=== PATIENT | male | born 1970 | race African-American/Black ===

== ENCOUNTER 2019-02-18 09:31 | Emergency (ER) | payer MEDICARE, OTHER ==
[~2019-02-18] VITALS: Ht 182.9 cm; Wt 99.8 kg
[2019-02-18] MEDS: IV NORMAL SALINE 1,000ML 1,000 ML IV SCH ×2 (09:46→10:59)
[2019-02-18 10:13] LABS: BASO % 1 % (0-3); EOS # 0.1 x10^3/uL (0.0-0.7); EOS % 2 % (0-3); HEMATOCRIT 39.8 % (39.0-53.0); HEMOGLOBIN 13.2 g/dL (13.0-17.5); LYMPH # 1.2 x10^3/uL (1.0-4.8); LYMPH % 31 % (24-48); MEAN CORPUSCULAR HEMOGLOBIN 29 pg (25-35); MEAN CORPUSCULAR HGB CONC 33 g/dL (31-37); MEAN CORPUSCULAR VOLUME 89 fL (79-100); MONO # 0.4 x10^3/uL (0.0-1.1); MONO % 10 % (0-9); NEUT # 2.2 x10^3uL (1.8-7.7); NEUT % 56 % (31-73); PLATELET COUNT 213 x10^3/uL (140-400); RED BLOOD COUNT 4.49 x10^6/uL (4.30-5.70)
[2019-02-18 10:19] LABS: ALBUMIN 3.4 g/dL (3.4-5.0); CALCIUM 9.5 mg/dL (8.5-10.1); CREATININE 1.4 mg/dL (0.7-1.3); GFR 65.2; MAGNESIUM 1.9 mg/dL (1.8-2.4); POTASSIUM 4.1 mmol/L (3.5-5.1); TOTAL BILIRUBIN 0.2 mg/dL (0.2-1.0); TOTAL PROTEIN 6.7 g/dL (6.4-8.2)
--- NOTE | 2019-02-18 10:22 | PHYS DOC ---
Past History Past Medical History: Bipolar, Diabetes, Hypertension, Other Alcohol Use: None Drug Use: None Adult General Chief Complaint Chief Complaint: DIZZY/LIGHT HEADED HPI HPI Patient is a 48 year old male who presents with dizziness and hypotension. Patient symptoms started this morning just after 8:00 AM. Patient was complaining of dizziness and feeling sick to his stomach. Patient comes to the emergency department from a snf. Patient has history of autism, bipolar disorder, and hypertension. The patient was noted to be hypotensive at 60/40 at the scene. EMS was called and found patient to be 70/50. Patient brought to the emergency department for further evaluation. The patient states currently he feels better while at rest but states that he was lightheaded when he was up on his feet. The patient took his blood pressure medications prior to onset of hypotension. Patient is currently on amlodipine and by systolic for treatment of blood pressure. No reported recent changes to blood pressure medication regimen. Patient's had no fevers and denies any pain, headache, congestion, vomiting, or diarrhea. Review of Systems Review of Systems Constitutional: Denies fever or chills [] Eyes: Denies change in visual acuity, redness, or eye pain [] HENT: Denies nasal congestion or sore throat [] Respiratory: Denies cough or shortness of breath [] Cardiovascular: Denies chest pain or edema[] GI: Denies abdominal pain, nausea, vomiting, bloody stools or diarrhea [] : Denies dysuria or hematuria [] Musculoskeletal: Denies back pain or joint pain [] Integument: Denies rash or skin lesions [] Neurologic: Dizziness, lightheadedness, denies headache, focal weakness or sensory changes [] All other systems were reviewed and found to be within normal limits, except as documented in this note. Current Medications Current Medications Current Medications Medications (Trade) Dose Ordered Sig/Tyrone Start Time Stop Time Status Last Admin Dose Admin Sodium Chloride 1,000 ml @ 1,000 mls/hr Q1H 02/18/19 09:36 02/18/19 11:35 02/18/19 09:46 1,000 MLS/HR Allergies Allergies Allergies Coded Allergies Type Severity Reaction Last Updated Verified strawberry Allergy Unknown 02/18/19 Yes Physical Exam Physical Exam Constitutional: Well developed, well nourished, no acute distress, non-toxic appearance. [] HENT: Normocephalic, atraumatic, bilateral external ears normal, oropharynx moist, no oral exudates, nose normal. [] Eyes: PERRLA, EOMI, conjunctiva normal, no discharge. [] Neck: Normal range of motion, no tenderness, supple, no stridor. [] Cardiovascular:Heart rate regular rhythm, no murmur [] Lungs & Thorax: Bilateral breath sounds clear to auscultation [] Abdomen: Bowel sounds normal, soft, no tenderness, no masses, no pulsatile masses. [] Skin: Warm, dry, no erythema, no rash. [] Back: No tenderness, no CVA tenderness. [] Extremities: No tenderness, no cyanosis, no clubbing, ROM intact, no edema. [] Neurologic: Alert and oriented X 3, normal motor function, normal sensory funct ion, no focal deficits noted. [] Psychologic: Affect normal, judgement normal, mood normal. [] Current Patient Data Vital Signs Vital Signs Date Time Temp Pulse Resp B/P (MAP) Pulse Ox O2 Delivery O2 Flow Rate FiO2 02/18/19 09:49 97.6 74 18 97 Room Air Lab Results Laboratory Tests Test 02/18/19 09:50 02/18/19 09:53 02/18/19 10:28 White Blood Count 4.0 x10^3/uL Red Blood Count 4.49 x10^6/uL Hemoglobin 13.2 g/dL Hematocrit 39.8 % Mean Corpuscular Volume 89 fL Mean Corpuscular Hemoglobin 29 pg Mean Corpuscular Hemoglobin Concent 33 g/dL Red Cell Distribution Width 14.0 % Platelet Count 213 x10^3/uL Neutrophils (%) (Auto) 56 % Lymphocytes (%) (Auto) 31 % Monocytes (%) (Auto) 10 % Eosinophils (%) (Auto) 2 % Basophils (%) (Auto) 1 % Neutrophils # (Auto) 2.2 x10^3uL Lymphocytes # (Auto) 1.2 x10^3/uL Monocytes # (Auto) 0.4 x10^3/uL Eosinophils # (Auto) 0.1 x10^3/uL Basophils # (Auto) 0.0 x10^3/uL Sodium Level 141 mmol/L Potassium Level 4.1 mmol/L Chloride Level 104 mmol/L Carbon Dioxide Level 33 mmol/L Anion Gap 4 Blood Urea Nitrogen 17 mg/dL Creatinine 1.4 mg/dL Estimated GFR (Cockcroft-Gault) 65.2 BUN/Creatinine Ratio 12 Glucose Level 146 mg/dL Calcium Level 9.5 mg/dL Magnesium Level 1.9 mg/dL Total Bilirubin 0.2 mg/dL Aspartate Amino Transf (AST/SGOT) 18 U/L Alanine Aminotransferase (ALT/SGPT) 34 U/L Alkaline Phosphatase 120 U/L Total Protein 6.7 g/dL Albumin 3.4 g/dL Albumin/Globulin Ratio 1.0 Glucose (Fingerstick) 143 mg/dL Urine Collection Type Unknown Urine Color Yellow Urine Clarity Clear Urine pH 6.5 Urine Specific Lewis 1.015 Urine Protein 30 mg/dl Urine Glucose (UA) Neg mg/dL Urine Ketones (Stick) Neg mg/dL Urine Blood Neg Urine Nitrite Neg Urine Bilirubin Neg Urine Urobilinogen Dipstick 0.2 mg/dL Urine Leukocyte Esterase Neg Urine RBC 0 /HPF Urine WBC Rare /HPF Urine Squamous Epithelial Cells Occ /LPF Urine Bacteria 0 /HPF Current Medications Medications (Trade) Dose Ordered Sig/Tyrone Route PRN Reason Start Time Stop Time Status Last Admin Dose Admin Sodium Chloride 1,000 ml @ 1,000 mls/hr Q1H IV 02/18/19 09:36 02/18/19 11:35 DC 02/18/19 10:59 EKG EKG Interpreted by me: Heart rate 64, sinus rhythm, normal intervals, leftward axis, no acute ST/T-wave abnormalities present[] Radiology/Procedures Radiology/Procedures [address] [address] IMAGING REPORT Signed PATIENT: RAPHAEL VELIZ ACCOUNT: [id number] : 1970 LOCATION: ER AGE: 48 SEX: M EXAM STATUS: REG ER ORD. PHYSICIAN: ANGELES DAVIS MD REASON: dizziness, hypotension PROCEDURE: PORTABLE CHEST 1V EXAM: AP View of the chest DATE: 02/18/2019 9:36 AM INDICATION: Dizziness, hypotension COMPARISON: No Prior FINDINGS: Moderate cardiomegaly. Atherosclerotic calcifications of the tortuous aorta are seen. Aorta is mildly tortuous. Mediastinal and hilar contours are exaggerated by low lung volumes. Patchy left suprahilar airspace opacities are seen.. The latter interstitial prominence is seen, nonspecific. No pleural effusion or pneumothorax. IMPRESSION: 1. Patchy left suprahilar and left infrahilar airspace opacities are seen, possibly infectious/inflammatory process. Imaging follow-up to resolution is recommended. 2. Nonspecific interstitial prominence may be also seen with atypical infectious/inflammatory process. Interstitial edema may also similar appearance given the cardiomegaly although no pleural effusions are seen. Electronically signed by: León Alamo MD (02/18/2019 10:32 AM) [facility] DICTATED AND SIGNED BY: LEÓN ALAMO MD DATE: 02/18/19 1032 CC: ANGELES DAVIS MD; PCP,NO ~ [] Course & Med Decision Making Course & Med Decision Making Pertinent Labs and Imaging studies reviewed. (See chart for details) Patient showed evidence of dehydration on lab work with mildly elevated creatinine level. Patient was given 2 L of IV fluids. Patient's blood pressure has remained stable in the emergency department and patient continues to deny any complaints at this time. Vital signs and lab work do not meet sepsis criteria. Patient's chest x-ray suggests possible left-sided pneumonia though patient does not have fever or active cough symptoms at this time. Early pneumonia remains in differential. The patient will be started on azithromycin for treatment. Patient able to ambulate in the emergency department without difficulty and states that he appears well at this time. Will discharge patient home with recommended follow-up with primary doctor in 5-7 days for reevaluation. Advised return to emergency department for any worsening symptoms. Patient and patient's director of casework services voiced understanding and in agreement with treatment plan.[] Dragon Disclaimer Dragon Disclaimer This electronic medical record was generated, in whole or in part, using a voice recognition dictation system. Departure Departure: Impression: Primary Impression: Lung infection Additional Impression: Dehydration Disposition: 01 HOME, SELF-CARE Condition: IMPROVED Referrals: PCP,DEYA (PCP) Patient Instructions: Dehydration, Adult Additional Instructions: Your lab work showed evidence of dehydration. Your chest x-ray shows findings in your left lung that could be possible infection. Your being started on an antibiotic today and it is recommended that she have a chest x-ray repeated in the next 3-4 weeks to make sure that these findings have resolved. If they continue, your doctor may need to order additional imaging for further evaluation of this. Be sure to measure your blood pressure before taking her medications in the morning. If your blood pressure is lower than 110/70, do not take your blood pressure medication as this could cause her blood pressure to become dangerously low. Be sure to drink plenty of fluids to stay hydrated. Follow-up with your primary doctor in the next 5-7 days for reevaluation and return to the emergency department for any worsening symptoms. Scripts Azithromycin (AZITHROMYCIN TABLET) 250 Mg Tablet 1 PKG PO UD, #6 TAB Prov: ANGELES DAVIS MD 02/18/19 Problem Qualifiers ANGELES DAVIS MD February 18, 2019 10:22
--- NOTE | 2019-02-18 10:36 | RAD ---
EXAM: AP View of the chest DATE: 02/18/2019 9:36 AM INDICATION: Dizziness, hypotension COMPARISON: No Prior FINDINGS: Moderate cardiomegaly. Atherosclerotic calcifications of the tortuous aorta are seen. Aorta is mildly tortuous. Mediastinal and hilar contours are exaggerated by low lung volumes. Patchy left suprahilar airspace opacities are seen.. The latter interstitial prominence is seen, nonspecific. No pleural effusion or pneumothorax. IMPRESSION: 1. Patchy left suprahilar and left infrahilar airspace opacities are seen, possibly infectious/inflammatory process. Imaging follow-up to resolution is recommended. 2. Nonspecific interstitial prominence may be also seen with atypical infectious/inflammatory process. Interstitial edema may also similar appearance given the cardiomegaly although no pleural effusions are seen. Electronically signed by: León Alamo MD (02/18/2019 10:32 AM) [facility]
[2019-02-18 10:59] LABS: BACTERIA,URINE 0 /HPF (0-FEW); BILIRUBIN,URINE NEG (NEG); CLARITY,URINE CLEAR; COLOR,URINE YELLOW; GLUCOSE,URINE NEG (NEG); NITRITE,URINE NEG (NEG); RBC,URINE 0 /HPF (0-2); SQUAMOUS EPITHELIAL CELL,UR OCC /LPF; UROBILINOGEN,URINE 0.2 mg/dL (0.2 mg/dL); WBC,URINE RARE /HPF (0-4)
[2019-02-18 11:28] VITALS: BP 141/103
[2019-02-18] MEDS ORDERED: AZIT250T6 PO (11:35)
--- NOTE | 2019-02-19 06:36 | EKG ---
[address] [address] Test Date: 2019-02-18 Test Time: 10:17:03 Pat Name: RAPHAEL VELIZ Department: Room: Gender: M Car Salesperson: : 1970 Requested By: ANGELES DAVIS Order Number: [id number] Reading MD: Measurements Intervals [place] Rate: 71 P: 22 VT: 204 QRS: 0 QRSD: 86 T: -17 QT: 376 QTc: 413 Interpretive Statements SINUS RHYTHM LEFTWARD AXIS T ABNORMALITY IN INFERIOR LEADS ABNORMAL ECG RI6.01 No previous ECG available for comparison
== END 2019-02-18 11:41 | disposition home or self-care (01) ==
LOC: ER 09:31
DX: J18.9 Pneumonia, unspecified organism (principal); E86.0 Dehydration; F31.9 Bipolar disorder, unspecified; E11.9 Type 2 diabetes mellitus without complications; I10 Essential (primary) hypertension; Z91.018 Allergy to other foods
CPT/HCPCS: 36415; 71045; 80053; 81001; 82947; 83735; 85025; 93005; 96360; 96361; 99285-25; J7030

== ENCOUNTER → 2019-12-03 | Outpatient (CLI) | payer MEDICARE, OTHER ==
[~2019-12-03] MED LIST: AZIT250T6 PO
--- NOTE | 2019-12-03 10:09 | CARD ---
MR#: [id number] Date of Study: 12/03/2019 Ordering Physician: RE NOLEN, Referring Physician: RE NOLEN, Tech: Fariha Ruff NGOZI APPROVED REPORT EXAM: Two-dimensional and M-mode echocardiogram with Doppler and color Doppler. Other Information Quality : Good INDICATION Hypertension/HCVD 2D DIMENSIONS RVDd2.9 (2.9-3.5cm)Left Atrium(2D)4.2 (1.6-4.0cm) IVSd1.4 (0.7-1.1cm)Aortic Root(2D)2.9 (2.0-3.7cm) LVDd4.6 (3.9-5.9cm)LVOT Diameter2.0 (1.8-2.4cm) PWd1.4 (0.7-1.1cm)LVDs3.2 (2.5-4.0cm) FS (%) 31.2 %SV57.4 ml LVEF(%)59.0 (>50%) Aortic Valve AoV Peak Waldo.156.4cm/sAoV VTI25.6cm AO Peak GR.9.8mmHgLVOT Peak Waldo.116.9cm/s LVOT VTI 21.67cmAO Mean GR.5mmHg JESSICA (VMAX)2.89oo7GXC (VTI)2.71cm2 AI P 1/2 Goqk314ax Mitral Valve MV E Klmbfcsw48.0cm/sMV DECEL [id number] MV A Ajvybszz69.9cm/sE/A Ratio0.7 Pulmonary Vein S1 Ravtzasd16.6cm/sD2 Guvdhvwr22.8cm/s LEFT VENTRICLE The left ventricle is normal size. There is mild to moderate concentric left ventricular hypertrophy. The left ventricular systolic function is normal and the ejection fraction is within normal range. T he Ejection Fraction is 55-60%. There is normal LV segmental wall motion. Transmitral Doppler flow pa ttern is Grade I-abnormal relaxation pattern. RIGHT VENTRICLE The right ventricle is normal size. The right ventricular systolic function is normal. ATRIA The left atrium is mildly dilated. The right atrium size is normal. The interatrial septum is intact with no evidence for an atrial septal defect or patent foramen ovale as noted on 2-D or Doppler imagi ng. AORTIC VALVE The aortic valve is normal in structure and function. Doppler and Color Flow revealed trace aortic re gurgitation. There is no significant aortic valvular stenosis. MITRAL VALVE The mitral valve is normal in structure and function. There is no evidence of mitral valve prolapse. There is no mitral valve stenosis. Doppler and Color Flow revealed no mitral valve regurgitation note d. TRICUSPID VALVE The tricuspid valve is normal in structure and function. Doppler and Color Flow revealed no tricuspid valve regurgitation noted. There is no tricuspid valve stenosis. PULMONIC VALVE Doppler and Color Flow revealed no pulmonic valvular regurgitation. There is no pulmonic valvular radha nosis. GREAT VESSELS The aortic root is normal in size. The ascending aorta is moderately dilated at 4.0 cm. The IVC was n ot visualized. PERICARDIAL EFFUSION There is no evidence of significant pericardial effusion. Critical Notification Critical Value: No <Conclusion> There is mild to moderate concentric left ventricular hypertrophy. The left ventricular systolic function is normal and the ejection fraction is within normal range. Th e Ejection Fraction is 55-60%. There is normal LV segmental wall motion. The ascending aorta is moderately dilated at 4.0 cm. Signed by : Re Nolen, Electronically Approved : 12/03/2019 10:09:11
== END | disposition home or self-care (01) ==
LOC: ECHO 08:54
PROVIDERS: ATTEND Internal Medicine Cardiovascular Disease
DX: I11.9 Hypertensive heart disease without heart failure (principal); I77.810 Thoracic aortic ectasia
CPT/HCPCS: 93306

== ENCOUNTER 2019-12-14 09:16 | Emergency (ER) | payer MEDICARE, OTHER ==
[~2019-12-14] VITALS: Ht 162.6 cm; Wt 115.0 kg
[2019-12-14] MEDS ORDERED: IV NORMAL SALINE 1,000ML 1,000 ML IV ONE ×3 (09:30)
--- NOTE | 2019-12-14 09:30 | PHYS DOC ---
Adult General Chief Complaint Chief Complaint: HYPOTENSION HPI HPI Patient is a 49-year-old male who is brought to the ER by EMS from a long-term secondary to reported dizziness and hypotension. EMS was called for dizziness and the patient's blood pressure was found to be low upon arrival. He was also found to be slightly hypoxic with oxygen saturation in the 80s so he was placed on 3 L nasal cannula. Patient denies chest pain or shortness of breath or dizziness and states that he feels normal; his blood pressure is currently 80s over 50s. There is report of a chronic cough that may have gotten worse over the past couple of days but no recent travel or high risk exposures or fever noted. Patient does have a colostomy and other medical records are currently being collected. Review of Systems Review of Systems All other systems were reviewed and found to be within normal limits, except as documented in this note. Physical Exam Physical Exam Constitutional: Well developed, well nourished, no acute distress, non-toxic appearance. [] HENT: Normocephalic, atraumatic, bilateral external ears normal, oropharynx moist, no oral exudates, nose normal. [] Eyes: PERRLA, EOMI, conjunctiva normal, no discharge. [] Neck: Normal range of motion, no tenderness, supple, no stridor. [] Cardiovascular:Heart rate regular rhythm, no murmur [] Lungs & Thorax: Bilateral breath sounds clear to auscultation [] Abdomen: Bowel sounds normal, soft, no tenderness, no masses, no pulsatile masses. Colostomy bag left lower abdominal wall with normal fecal material. Skin: Warm, dry, no erythema, no rash. [] Back: No tenderness, no CVA tenderness. [] Extremities: No tenderness, no cyanosis, no clubbing, ROM intact, no edema. [] Neurologic: Alert and oriented X 3, normal motor function, normal sensory function, no focal deficits noted. [] Psychologic: Affect normal, judgement normal, mood normal. EKG EKG EKG shows a sinus rhythm with a heart rate of [address] intervals and no ST changes. [] Radiology/Procedures Radiology/Procedures []CHEST AP ONLY, KUB Clinical indications: Hypotension. Vomiting. PORTABLE AP UPRIGHT CHEST X-RAY COMPARISON: None available. Findings: No acute lung infiltrate or pleural effusion or pulmonary edema or lung mass or pneumothorax is seen. The heart size, pulmonary vasculature, mediastinum and both kings are unremarkable. IMPRESSION: No acute radiographic abnormality is seen. KUB: There is mild dilatation of small bowel loops with little air noted in the colon. Surgical clips are seen within the pelvis. There is a 4 cm round opacification within the lower central pelvis. This could represent a urinary bladder stone. The osseous structures appear intact. IMPRESSION: Mild dilatation of small bowel loops. This could represent early small bowel obstruction or enteritis. 4 cm round calcification within the lower central pelvis which could represent a urinary bladder stone. Course & Med Decision Making Course & Med Decision Making Pertinent Labs and Imaging studies reviewed. (See chart for details) 0930: This patient is seen for dizziness and hypotension. At this time there is no definitive source of infection so we will get a complete septic work-up and give him 3 L of normal saline based on an ideal body weight of 100 kg. Of note there was concern for possible ST elevation in leads V1 and V2 on EMSs EKG so the patient was given aspirin. However on repeat EKG in the emergency department there is no evidence of ST elevation. 1056: Patient's work-up is complete at this time and is remarkable for renal insufficiency with an unknown baseline; patient's caregiver is at bedside and states that he has had abnormal renal function in the past without unknown baseline. She also reports the patient has been having nausea vomiting and diarrhea for the past 3 days. His cardiac work-up was unremarkable. He will be admitted to the hospitalist who will determine whether the patient states that [place] or goes to [facility]. Dragon Disclaimer Dragon Disclaimer This electronic medical record was generated, in whole or in part, using a voice recognition dictation system. Departure Departure: Impression: Primary Impression: Enteritis Additional Impressions: Nausea & vomiting Hypotension Renal failure Disposition: 02 XFER SHT-TRM HOSP (Transfer to [facility]; accepted by Dr. Lam) Condition: STABLE Referrals: DAVIDE FRANCO MD (PCP) Problem Qualifiers CEASAR MARCUS DO Dec 14, 2019 09:30
[2019-12-14] MEDS ORDERED: ONDANSETRON PF 4 MG/2 ML VIAL. ONE (09:33)
--- NOTE | 2019-12-14 09:36 | EKG ---
[address] [address] Test Date: 2019-12-14 Test Time: 09:26:15 Pat Name: RAPHAEL CHATMAN Department: Room: Gender: M Shift Manager: : 1970 Requested By: CEASAR MARCUS Order Number: [id number] Reading MD: Measurements Intervals [place] Rate: 93 P: 36 ID: [id number] QRS: 7 QRSD: 82 T: 3 QT: 334 QTc: 418 Interpretive Statements SINUS RHYTHM NORMAL ECG RI6.01 No previous ECG available for comparison
[2019-12-14] MEDS ORDERED: ONDANSETRON PF 4 MG/2 ML VIAL. IVP ONE (09:45)
[2019-12-14 10:15] LABS: BASO % 0 % (0-3); EOS % 1 % (0-3); HEMATOCRIT 38.8 % (39.0-53.0); HEMOGLOBIN 12.9 g/dL (13.0-17.5); LYMPH # 0.4 x10^3/uL (1.0-4.8); LYMPH % 8 % (24-48); MEAN CORPUSCULAR HEMOGLOBIN 30 pg (25-35); MEAN CORPUSCULAR HGB CONC 33 g/dL (31-37); MEAN CORPUSCULAR VOLUME 91 fL (79-100); MONO # 0.8 x10^3/uL (0.0-1.1); MONO % 16 % (0-9); NEUT # 3.8 x10^3uL (1.8-7.7); NEUT % 76 % (31-73); PLATELET COUNT 222 x10^3/uL (140-400); RED BLOOD COUNT 4.25 x10^6/uL (4.30-5.70); RED CELL DISTRIBUTION WIDTH 14.4 % (11.5-14.5)
[2019-12-14 10:30] LABS: CALCIUM 8.4 mg/dL (8.5-10.1); CREATININE 6.4 mg/dL (0.7-1.3); GFR 11.2; POTASSIUM 3.3 mmol/L (3.5-5.1)
--- NOTE | 2019-12-14 10:34 | RAD ---
CHEST AP ONLY, KUB Clinical indications: Hypotension. Vomiting. PORTABLE AP UPRIGHT CHEST X-RAY COMPARISON: None available. Findings: No acute lung infiltrate or pleural effusion or pulmonary edema or lung mass or pneumothorax is seen. The heart size, pulmonary vasculature, mediastinum and both kings are unremarkable. IMPRESSION: No acute radiographic abnormality is seen. KUB: There is mild dilatation of small bowel loops with little air noted in the colon. Surgical clips are seen within the pelvis. There is a 4 cm round opacification within the lower central pelvis. This could represent a urinary bladder stone. The osseous structures appear intact. IMPRESSION: Mild dilatation of small bowel loops. This could represent early small bowel obstruction or enteritis. 4 cm round calcification within the lower central pelvis which could represent a urinary bladder stone. Electronically signed by: Nito Villafuerte MD (12/14/2019 10:29 AM) [facility] [facility] [place]
[2019-12-14 10:44] LABS: INFLUENZA A PATIENT NEGATIVE (NEGATIVE); INFLUENZA B PATIENT NEGATIVE (NEGATIVE)
[2019-12-14 10:45] LABS: ALBUMIN 3.2 g/dL (3.4-5.0); ALBUMIN/GLOBULIN RATIO 0.9 (1.0-1.7); MAGNESIUM 2.3 mg/dL (1.8-2.4); TOTAL BILIRUBIN 0.4 mg/dL (0.2-1.0); TOTAL PROTEIN 6.6 g/dL (6.4-8.2)
[2019-12-14 12:58] VITALS: BP 107/84
== END 2019-12-14 12:55 | disposition short-term general hospital (02) ==
LOC: MERGE 09:16 → ER 09:16
DX: K52.9 Noninfective gastroenteritis and colitis, unspecified (principal); I95.9 Hypotension, unspecified; N19 Unspecified kidney failure
CPT/HCPCS: 36415; 71045; 74018; 80053; 82553; 83605; 83690; 83735; 83880; 84443; 84484; 85025; 85610; 85730; 87040; 87804; 93005; 96361; 96374; 99285; J2405; J7030

== ENCOUNTER 2021-03-04 07:33 | Emergency (ER) | payer MEDICARE, OTHER ==
[~2021-03-04] VITALS: Ht 182.9 cm; Wt 100.0 kg
[2021-03-04 07:40] VITALS: BP 153/95
[2021-03-04] MEDS ORDERED: IV NORMAL SALINE 1,000ML 1,000 ML IV ONE (07:45)
--- NOTE | 2021-03-04 07:45 | PHYS DOC ---
Past History Past Medical History: Bipolar, Diabetes, Hypertension, Other Additional Past Medical Histor: AUTISM, DEVELOPMENTAL DELAY, ALLERGIC RHINITIS, EXPLOSIVE DISORDER Past Surgical History: Other Additional Past Surgical Histo: COLOSTOMY Alcohol Use: None Drug Use: None General Adult EDM: Chief Complaint: Given wrong medication HPI: HPI: 50-year-old male from a retirement presents after being given the wrong medication this morning around 6 AM. The patient was given glipizide and he is not diabetic. They called poison control and poison control referred him to the emergency room for 12 hours of observation. The patient is feeling well at this time. He has no additional complaints. Review of Systems: Review of Systems: Constitutional: Denies fever or chills Eyes: Denies change in visual acuity HENT: Denies nasal congestion or sore throat Respiratory: Denies cough or shortness of breath Cardiovascular: Denies chest pain or edema GI: Denies abdominal pain, nausea, vomiting, bloody stools or diarrhea : Denies dysuria Musculoskeletal: Denies back pain or joint pain Integument: Denies rash Neurologic: Denies headache, focal weakness or sensory changes Endocrine: Denies polyuria or polydipsia Lymphatic: Denies swollen glands Psychiatric: Denies depression or anxiety Current Medications: Current Meds: Current Medications Medications (Trade) Dose Ordered Sig/Tyrone Start Time Stop Time Status Last Admin Dose Admin Sodium Chloride 1,000 ml @ 1,000 mls/hr 1X ONCE 03/04/21 07:45 03/04/21 08:44 UNV Allergies: Allergies: Allergies Coded Allergies Type Severity Reaction Last Updated Verified strawberry Allergy Unknown 02/18/19 Yes Physical Exam: PE: Constitutional: Well developed, well nourished, no acute distress, non-toxic appearance. [] HENT: Normocephalic, atraumatic, bilateral external ears normal, oropharynx moist, no oral exudates, nose normal. [] Eyes: PERRLA, EOMI, conjunctiva normal, no discharge. [] Neck: Normal range of motion, no tenderness, supple, no stridor. [] Cardiovascular: Heart rate regular rhythm, no murmur [] Lungs & Thorax: Bilateral breath sounds clear to auscultation [] Abdomen: Bowel sounds normal, soft, no tenderness, no masses, no pulsatile masses. [] Skin: Warm, dry, no erythema, no rash. [] Back: No tenderness, no CVA tenderness. [] Extremities: No tenderness, no cyanosis, no clubbing, ROM intact, no edema. [] Neurologic: Alert and oriented X 3, normal motor function, normal sensory function, no focal deficits noted. [] Psychologic: Affect normal, judgement normal, mood normal. [] EKG: EKG: [] Radiology/Procedures: Radiology/Procedures: [] Heart Score: C/O Chest Pain: N/A Risk Factors: Risk Factors: DM, Current or recent (<one month) smoker, HTN, HLP, family history of CAD, obesity. Risk Scores: Score 0 - 3: 2.5% MACE over next 6 weeks - Discharge Home Score 4 - 6: 20.3% MACE over next 6 weeks - Admit for Clinical Observation Score 7 - 10: 72.7% MACE over next 6 weeks - Early Invasive Strategies Course & Med Decision Making: Course & Med Decision Making Pertinent Labs and Imaging studies reviewed. (See chart for details) We will check the patient's blood sugar every hour for the 12 hours of observation. The patient did have hypoglycemia on 2 checks. We gave him 100 mcg of octreotide. He has not been hypoglycemic since. He has been observed for 12 hours since ingestion of the glipizide. He is stable for discharge at this time. [] Dragon Disclaimer: Ana Luisa Disclaimer: This electronic medical record was generated, in whole or in part, using a voice recognition dictation system. Departure Departure: Impression: Primary Impression: Accidental overdose Qualified Codes: T50.901A - Poisoning by unspecified drugs, medicaments and biological substances, accidental (unintentional), initial encounter Disposition: HOME / SELF CARE / HOMELESS Condition: STABLE Referrals: DAVIDE FRANCO MD (PCP) Patient Instructions: Hypoglycemia, Zocd-us-Uxol EVENS PAUL DO Mar 04, 2021 07:45
[2021-03-04] MEDS ORDERED: DEXTROSE 50% 25 GM / 50ML DISP.SYRIN. IV ONE ×2 (08:33→08:45)
[2021-03-04] MEDS ORDERED: IV DEXTROSE 5% - 0.9 % NACL 1,000 ML IV ONE (08:45)
[2021-03-04 08:58] LABS: BASO % 1 % (0-3); EOS % 1 % (0-3); HEMATOCRIT 41.2 % (39.0-53.0); LYMPH # 1.4 x10^3/uL (1.0-4.8); LYMPH % 34 % (24-48); MEAN CORPUSCULAR HEMOGLOBIN 30 pg (25-35); MEAN CORPUSCULAR HGB CONC 34 g/dL (31-37); MEAN CORPUSCULAR VOLUME 89 fL (79-100); MONO # 0.6 x10^3/uL (0.0-1.1); MONO % 14 % (0-9); NEUT # 2.1 x10^3uL (1.8-7.7); NEUT % 51 % (31-73); PLATELET COUNT 223 x10^3/uL (140-400); RED BLOOD COUNT 4.61 x10^6/uL (4.30-5.70); RED CELL DISTRIBUTION WIDTH 13.7 % (11.5-14.5); WHITE BLOOD COUNT 4.1 x10^3/uL (4.0-11.0)
[2021-03-04 09:01] LABS: CALCIUM 9.3 mg/dL (8.5-10.1); CREATININE 1.2 mg/dL (0.7-1.3); GFR 77.2; POTASSIUM 3.4 mmol/L (3.5-5.1)
[2021-03-04 09:08] LABS: ALBUMIN 3.7 g/dL (3.4-5.0); ALBUMIN/GLOBULIN RATIO 1.3 (1.0-1.7); TOTAL BILIRUBIN 0.2 mg/dL (0.2-1.0); TOTAL PROTEIN 6.6 g/dL (6.4-8.2)
[2021-03-04] MEDS ORDERED: OCTREOTIDE 100 MCG/ML VIAL ONE (10:03)
[2021-03-04] MEDS ORDERED: OCTREOTIDE 100 MCG/ML VIAL SQ ONE (10:15)
[2021-03-04 11:29] LABS: BILIRUBIN,URINE NEG (NEG); CLARITY,URINE CLEAR; COLOR,URINE STRAW; GLUCOSE,URINE >=1000 mg/dL (NEG); NITRITE,URINE NEG (NEG); UROBILINOGEN,URINE 0.2 mg/dL (0.2 mg/dL)
[2021-03-04 11:30] LABS: BACTERIA,URINE 0 /HPF (0-FEW); RBC,URINE 0 /HPF (0-2); WBC,URINE 0 /HPF (0-4)
== END 2021-03-04 18:25 | disposition home or self-care (01) ==
LOC: ER 07:33
DX: T38.3X1A Poisoning by insulin and oral hypoglycemic [antidiabetic] drugs, accidental (unintentional), initial encounter (principal); E11.9 Type 2 diabetes mellitus without complications; I10 Essential (primary) hypertension; Y92.9 Unspecified place or not applicable
CPT/HCPCS: 36415; 80053; 81001; 82947; 85025; 96361; 96372; 96374; 99283; J2354; J7030; J7042

== ENCOUNTER → 2021-10-24 | Outpatient (CLI) | payer MEDICARE, OTHER ==
--- NOTE | 2021-10-24 13:16 | RAD ---
EXAM: Head CT without contrast. HISTORY: Amnesia. TECHNIQUE: Computed tomographic images of the head were obtained without contrast. *One or more of the following individualized dose reduction techniques were utilized for this examina tion: 1. Automated exposure control. 2. Adjustment of the mA and/or kV according to patient size. 3. Use of iterative reconstruction technique. COMPARISON: None. FINDINGS: There is no acute or subacute extra-axial or intraparenchymal hemorrhage. There is no mass effect or midline shift. There is no hydrocephalus. The galvan-white matter differentiation pattern is intact. There is mild focal right maxillary sinus because of thickening or mucus retention cyst, partially in cluded on the [id number]. The orbits and mastoid air cells are unremarkable. There is no calvarial lesion. IMPRESSION: No acute intracranial finding. Electronically signed by: Vidya Cason MD (10/24/2021 1:13 PM) [id number]
== END ==
LOC: CT 12:39
PROVIDERS: ATTEND Specialist
DX: R41.3 Other amnesia (principal)
CPT/HCPCS: 70450